=== PATIENT | female | born 1965 ===

== ENCOUNTER 2017-10-24 14:10 | Outpatient (CLI) | payer OTHER ==
[~2017-10-24 14:10] MED LIST: NABUMETONE500 MG PO; PERCOCET 5/3251 TAB PO
== END 2017-10-24 14:29 | disposition home or self-care (01) ==
LOC: RAD 14:10
DX: M25.561 Pain in right knee (principal)

== ENCOUNTER 2018-01-18 08:20 | Outpatient (CLI) | payer OTHER | END 2018-01-18 14:26 | disposition home or self-care (01) | LOC: RAD 08:20 | DX: R07.89 Other chest pain (principal) ==

== ENCOUNTER 2018-01-24 10:00 | Inpatient (IN) | payer OTHER ==
[~2018-01-24] VITALS: Ht 152.4 cm; Wt 97.5 kg
[2018-01-24] MEDS ORDERED: IRBESARTAN-HCT1 EACH PO (11:38)
== END 2018-02-02 17:51 | DRG 470 ==
LOC: O/R 01-31 07:15 → SURG 01-31 07:15 → SURH 01-31 10:00 → SURG 01-31 16:43
PROVIDERS: Orthopaedic Surgery
PROC: 0SRC0J9 Replacement of Right Knee Joint with Synthetic Substitute, Cemented, Open Approach (ICD-10-PCS; principal; 2018-01-31 14:15)
DX: M17.11 Unilateral primary osteoarthritis, right knee (principal); D62 Acute posthemorrhagic anemia; M85.461 Solitary bone cyst, right tibia and fibula; E66.01 Morbid (severe) obesity due to excess calories; I10 Essential (primary) hypertension; Z87.891 Personal history of nicotine dependence